=== PATIENT | female | born 1960 | race Caucasian/White ===

== ENCOUNTER 2019-03-22 10:43 | Outpatient (CLI) | payer BC ==
[2019-03-22 11:28] LABS: ALT (SGPT) 27 U/L (8-55); AST (SGOT) 23 U/L (5-34); Albumin 4.4 g/dL (3.5-5.0); Alkaline Phosphatase 102 U/L (40-150); Anion Gap 15 mmol/L (10-20); BUN (Urea Nitrogen) 14 mg/dL (9.8-20.1); Bilirubin, Total 0.4 mg/dL (0.2-1.2); Calc. Creatinine Clearance 0 mL/min (70-130); Calcium 9.6 mg/dL (7.8-10.44); Carbon Dioxide 26 mmol/L (22-29); Cardiac Risk 5.2 (Less than 4.5); Chloride 105 mmol/L (98-107); Cholesterol 255 mg/dl (< 200 Desired); Estimated GFR-MDRD 57; Globulin 2.9 g/dL (2.4-3.5); Glucose 87 mg/dL (70-105); HDL Cholesterol 49 mg/dL (>60 Neg Risk); LDL Cholesterol, Calculated 164 mg/dL; Potassium 4.3 mmol/L (3.5-5.1); Protein, Total 7.3 g/dL (6.0-8.3); Sodium 142 mmol/L (136-145); Triglycerides 210 mg/dL (Less than 150)
[2019-03-22 11:43] LABS: Thyroid Stimulating Hormone 1.8554 uIU/mL (0.35-4.94)
[2019-03-22 19:35] LABS: Free T4 (Free Thyroxine) 0.99 ng/dL (0.70-1.48)
[2019-03-22 19:37] LABS: Vitamin D, 25 Hydroxy 47.2 ng/ml (> 30.0)
== END 2019-03-22 10:44 | disposition home or self-care (01) ==
LOC: MADLABBHPM 10:43
PROVIDERS: ATTEND Family Medicine
DX: Z01.419 Encounter for gynecological examination (general) (routine) without abnormal findings (principal); E55.9 Vitamin D deficiency, unspecified; F41.9 Anxiety disorder, unspecified
CPT/HCPCS: 36415; 80053; 80061; 82306; 84439; 84443

== ENCOUNTER 2020-11-20 15:07 | Outpatient (CLI) | payer OTHER | END 2020-11-20 15:08 | disposition home or self-care (01) | LOC: MADLAB 15:07 | PROVIDERS: ATTEND Family Medicine | DX: R14.0 Abdominal distension (gaseous) (principal) | CPT/HCPCS: 74018 ==

== ENCOUNTER 2025-06-15 09:03 | Outpatient (CLI) | payer OTHER | END 2025-06-15 09:04 | disposition home or self-care (01) | LOC: MADRAD 09:03 | PROVIDERS: ATTEND Family Medicine | DX: M25.552 Pain in left hip (principal) ==